=== PATIENT | female | born 1945 | race Caucasian/White ===

== ENCOUNTER 2016-07-23 16:26 | Observation (INO) | payer OTHER ==
--- NOTE | 2016-07-23 16:48 | ED EKG INTERP ---
EKG Interpretation - EKG Time of EKG reading by physician:: 16:33 EKG Read and Signed by:: Kevin Winston EKG Interpretation (*Must complete 3 of following elements*): Abnormal Rate: 70 (minimal voltage criteria for LVH, may be normal variant ) Rhythm: NSR Attestation - Scribe Verification/Attestation Scribe:: Yanira Vallecillo Acting as Scribe for:: Kevin Winston Scribe documention review:: This chart was documented by a scribe and accurately reflects the service the provider performed and the decisions made by the provider.
--- NOTE | 2016-07-23 19:36 | PROVIDER DOCUMENTATION ---
HPI-Neurological Disorder - General Chief Complaint: Headache Stated Complaint: TIA Time Seen by Provider: 07/23/16 18:57 Source: patient Allergies/Adverse Reactions: Patient Allergies Allergy/AdvReac Type Severity Reaction Status Date / Time erythromycin estolate * AdvReac Mild DIARRHEA Verified 06/13/16 16:16 [From Ilosone] Home Medications: Home Medication List Medication Instructions Recorded Confirmed Last Taken Type Donepezil [Aricept] 10 mg PO DAILY 06/13/16 06/13/16 Unknown History Fluoxetine [Prozac] 20 mg PO DAILY 06/13/16 06/13/16 Unknown History ATORVAstatin [Lipitor] 40 mg PO QHS #60 tablet 06/15/16 Unknown Rx LISINOpril [Prinivil] 10 mg PO DAILY #60 tablet 06/15/16 Unknown Rx Levothyroxine [Synthroid] 100 microgm PO DAILY@0700 #60 06/15/16 Unknown Rx tablet Omeprazole [Prilosec] 40 mg PO DAILY@0700 #60 capsule 06/15/16 Unknown Rx - History of Present Illness-Neuro Nature of Presenting Problem: Pt is a 71 yof who presents to ER with CC of a headache and flu sxs with onset this am. Pt has hx of TIA and reports a L temporal headache (sharp/stabbing/ throbbing). In triage, pt had a fever. Headache Location: reports: temporal (L) Severity: reports: mild Onset/Duration: reports: this morning Timing: reports: still present Context: reports: fever, other (headache) Character of Altered Mental Status: reports: N/A Any recent trauma/injury?: reports: none Character of Deficits: reports: new weakness Cognitive Baseline: alert, oriented x3 Gait Baseline: walks without assistance Associated Symptoms: reports: headache, fatigue. denies: short of breath, decreased ability to walk or stand, fainting, dizziness, loss of consciousness, muscle spasms, nausea, numbness in legs/feet, paresthesia, slurred speech, tingling in legs/feet, trouble walking, vomiting, vision changes, weakness Review of Systems - Adult - REVIEW OF SYSTEMS - ADULT Constitutional: reports: fatique. denies: chills, fever, night sweats, weight gain, weight loss Eyes: reports: no symptoms reported Ears, Nose, Mouth & Throat: reports: no symptoms reported Cardiovascular: reports: no symptoms reported Respiratory: reports: no symptoms reported Gastrointestinal: reports: no symptoms reported Genitourinary: reports: no symptoms reported Musculoskeletal: reports: muscle aches. denies: bone pain, back pain, frequent leg cramps, joint pain, joint swelling, muscle weakness, neck pain Integumentary: reports: no symptoms reported Neurological: reports: headache/migraines. denies: ataxia, dizziness/vertigo, loss of balance, numbness, paresthesia, seizure, slurred speech, syncope, tremors Psychiatric: reports: no symptoms reported Endocrine: reports: no symptoms reported Hematologic/Lymphatic: reports: no symptoms reported Allergic/Immunologic: reports: no symptoms reported All Other Systems: Reviewed and Negative Past History - Adult - PAST MEDICAL HISTORY-ADULT Review of Records: reports: Nursing Assessment Review, Medications Reviewed Cardiovascular: reports: HTN, hyperlipidemia Gastrointestinal: reports: cancer (colon) Musculoskeletal: reports: chronic pain, neck/back injury (20 years ago) Endocrine/Immune: reports: thyroid disorder (hypo) - PRIOR SURGERIES/PROCEDURES Surgical/Procedure History: reports: BTL, tonsillectomy, bowel surgery, other ( breast lumpectomy, thyroidectomy) - IMMUNIZATION STATUS Childhood Immunizations: See Nurse Assessment Flu Vaccine: See Nurse Assessment Physical Exam- Neurological - Physical Exam-Neuro Initial Vital Signs Reviewed: Yes General Appearance: appears well, alert, mild distress, lethargic. negative: no apparent distress Eye Exam: bilateral eye: normal inspection, PERRL, EOMI Head Injury: no evidence of injury Neck: non-tender, full range of motion, supple. negative: C-spine tenderness, limited range of motion Respiratory: chest non-tender, lungs clear, normal breath sounds. negative: respiratory distress, decreased breath sounds, accessory muscle use, wheezing Cardiovascular: normal peripheral pulses, regular rate, rhythm. 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 negative: weak motor strength RUE, weak motor strength LUE, weak motor strength RLE, weak motor strength LLE Neurologic: grossly normal, no motor/sensory deficits. negative: facial droop, focal weakness, motor weakness, sensory deficit Psych/Mental Status: normal mood/affect, normal thought content, normal thought process, oriented x 3 Progress - PLAN OF CARE/RESULTS Progress/Plan/Lab Results: Vital Signs - 24 hr 07/23/16 16:30 Temperature 100.0 F H Pulse Rate 71 Respiratory 18 Rate Blood Pressure 151/79 O2 Sat by Pulse 97 Oximetry Orders Category Date Time Status Cardiac Monitoring DIRECTED Care 07/23/16 18:58 Active Saline Loc NOW Care 07/23/16 18:58 Active CHEST-2 VIEWS [RAD] Stat Exams 07/23/16 18:58 Taken HEAD W/O CONTRAST [CT] Stat Exams 07/23/16 16:35 Taken CBC WITH ELECTRONIC DIFF [HEME] Stat Lab 07/23/16 20:20 Completed CK PROFILE [SP CHEM] Stat Lab 07/23/16 20:20 Completed COMPREHENSIVE METABOLIC PANEL [CHEM] Stat Lab 07/23/16 20:20 Completed INFLUENZA SCREEN A/B Stat Lab 07/23/16 20:20 Completed MAGNESIUM [CHEM] Stat Lab 07/23/16 20:20 Completed PRO B-NATRIURETIC PEPTIDE Stat Lab 07/23/16 20:20 Completed PROTIME WITH INR [COAG] Stat Lab 07/23/16 20:20 Completed PTT [COAG] Stat Lab 07/23/16 20:20 Completed SED RATE [HEME] Stat Lab 07/23/16 20:20 Received TROPONIN T Stat Lab 07/23/16 20:20 Completed TSH Stat Lab 07/23/16 20:20 Completed UA Reflex [URINALYSIS W/POSS RFLX CULT] [URINALYSIS] Lab 07/23/16 21:16 Ordered Stat EKG [EKG] Stat Ther 07/23/16 16:32 Ordered EKG [EKG] Stat Ther 07/23/16 18:58 Ordered Laboratory Tests 07/23/16 07/23/16 07/23/16 20:20 20:20 20:20 WBC 4.53 L RBC 4.46 Hgb 13.2 Hct 40.3 MCV 90.4 MCH 29.6 MCHC 32.8 L RDW Std Deviation 12.0 Plt Count 179 MPV 11.1 H Immature Gran % (Auto) 0.0 Neut % (Auto) 60.3 Lymph % (Auto) 22.1 Calloway % (Auto) 16.3 H Eos % (Auto) 0.9 Baso % (Auto) 0.4 Immature Gran # (Auto) 0.00 Neut # (Auto) 2.73 Lymph # (Auto) 1.00 L Calloway # (Auto) 0.74 H Eos # (Auto) 0.04 Baso # (Auto) 0.02 PT INR PTT (Actin FS) Sodium 140 Potassium 3.7 Chloride 103 Carbon Dioxide 25 Anion Gap 12 BUN 16 Creatinine 0.9 Estimated GFR/1.73 m2 > 60 BUN/Creatinine Ratio 18 Glucose 91 Calculated Osmolality 280 Calcium 9.0 Magnesium 1.7 Total Bilirubin 0.32 AST 22 ALT 21 Alkaline Phosphatase 118 H Creatine Kinase 70 Troponin T Vtv-D-Tpsfphbzoyh Pept Total Protein 6.5 Albumin 4.1 Globulin 2.4 Albumin/Globulin Ratio 1.7 TSH 4.43 H 07/23/16 07/23/16 07/23/16 20:20 20:20 20:20 WBC RBC Hgb Hct MCV MCH MCHC RDW Std Deviation Plt Count MPV Immature Gran % (Auto) Neut % (Auto) Lymph % (Auto) Calloway % (Auto) Eos % (Auto) Baso % (Auto) Immature Gran # (Auto) Neut # (Auto) Lymph # (Auto) Calloway # (Auto) Eos # (Auto) Baso # (Auto) PT 10.8 INR 1.02 PTT (Actin FS) 29.5 Sodium Potassium Chloride Carbon Dioxide Anion Gap BUN Creatinine Estimated GFR/1.73 m2 BUN/Creatinine Ratio Glucose Calculated Osmolality Calcium Magnesium Total Bilirubin AST ALT Alkaline Phosphatase Creatine Kinase Troponin T < 0.010 [id number] Pept 92 Total Protein Albumin Globulin Albumin/Globulin Ratio TSH - REASSESSMENT Reassessment #1 Time Reassessed: 21:25 Status: other (Dr. Beal informed pt is positive for flu B. Pt reports that she still has a headache.) - CT/MRI 1 CT Study: Head Impression: See EMR Report CT Results: NAP - CONSULTS/PCP/HOSPITALIST Notification #1 *Consult/PCP/Hospitalist*: Dr. Colón (Hospitalist) Time Discussed: 22:00 Consult Disposition: Admit Departure - Departure Time of Disposition Order: 21:59 DIAGNOSIS: Influenza B, Generalized weakness Disposition: ADMITTED INPATIENT 09 Certified Medical Emergency: Emergent Condition: Stable Referrals: Medina Marcelino MD [Primary Care Provider] - Attestation - Scribe Verification/Attestation Scribe:: Dilip Uriostegui Acting as Scribe for:: Doc Beal Scribe documention review:: This chart was documented by a scribe and accurately reflects the service the provider performed and the decisions made by the provider.
[2016-07-23 20:29] LABS: MANUAL DIFF NEEDED? NO
[2016-07-23 20:42] LABS: BASO% 0.4 % (0.0-0.8); EOS# 0.04 X1000 (0.0-0.7); EOS% 0.9 % (0.0-10.0); HEMATOCRIT 40.3 % (37.0-47.0); HEMOGLOBIN 13.2 g/dL (12.0-16.0); LYMPH% 22.1 % (20.5-51.1); MCH 29.6 PG (27-31); MCHC 32.8 g/dL (33-37); MCV 90.4 FL (81-99); MONO# 0.74 X1000 (0.11-0.59); MONO% 16.3 % (1.7-9.3); MPV 11.1 FL (7.4-10.4); NEUT% 60.3 % (42.2-75.2); PLT 179 X1000 (130-400); RBC 4.46 XMIL (4.2-5.4)
[2016-07-23 20:49] LABS: INR 1.02; PROTIME 10.8 Seconds (9.2-11.7); PTT 29.5 Seconds (22.0-36.0)
[2016-07-23 20:57] LABS: AGAP 12; ALBUMIN 4.1 g/dL (3.5-5.0); ALKALINE PHOSPHATASE 118 U/L (32-104); BUN 16 mg/dL (8-22); CHLORIDE 103 mmol/L (98-107); CK PROFILE 70 U/L (24-173); COSMO 280; GOT 22 U/L (10-30); GPT 21 U/L (10-36); MAGNESIUM 1.7 mg/dL (1.5-2.7); POTASSIUM 3.7 mmol/L (3.5-5.1); SODIUM 140 mmol/L (136-145); TCO2 25 mmol/L (25-35); TOTAL BILIRUBIN 0.32 mg/dL (0.20-1.00); TOTAL PROTEIN 6.5 g/dL (6.3-8.3)
[2016-07-23] MEDS ORDERED: ROCEPHIN 1 GM/NS 50 ML IV ONE (21:25)
[2016-07-23] MEDS ORDERED: TAMIFLU PO ONE (21:25)
[2016-07-23] MEDS ORDERED: DECADRON IV ONE (21:25)
[2016-07-23] MEDS ORDERED: NORFLEX IV ONE (21:25)
[2016-07-23 21:30] LABS: URINE CULTURE NEEDED? NO; URINE MICRO REVIEW NEEDED? NO; URINE SOURCE CLEAN CATCH
[2016-07-23 21:48] LABS: BILIRUBIN URINE NEGATIVE (NEGATIVE); BLOOD URINE SMALL (NEGATIVE); COLOR YELLOW; GLUCOSE URINE NEGATIVE (NEGATIVE); LEUKOCYTES URINE NEGATIVE (NEGATIVE); NITRITE URINE NEGATIVE (NEGATIVE); PROTEIN URINE NEGATIVE (NEGATIVE); SP GRAVITY URINE 1.016; TURBIDITY URINE CLEAR (CLEAR); UROBILINOGEN URINE NORMAL (NORMAL)
[2016-07-23 21:49] LABS: UR EPITHELIAL CELLS <10 /HPF (<10); URINE BACTERIA NEGATIVE /HPF; URINE WBC <10 /HPF (<10)
[2016-07-23] MEDS ORDERED: PHENERGAN PO ONE (23:57)
[2016-07-23] MEDS ORDERED: FIORICET PO ONE (23:57)
[2016-07-24] MEDS ORDERED: ZOFRAN IV PRN ×2 (02:01)
[2016-07-24] MEDS ORDERED: TYLENOL PO PRN (02:01)
[2016-07-24 04:52] LABS: MANUAL DIFF NEEDED? NO
[2016-07-24 04:54] LABS: BASO% 0.6 % (0.0-0.8); HEMATOCRIT 42.7 % (37.0-47.0); HEMOGLOBIN 14.2 g/dL (12.0-16.0); LYMPH% 20.1 % (20.5-51.1); MCH 29.6 PG (27-31); MCHC 33.3 g/dL (33-37); MONO# 0.14 X1000 (0.11-0.59); MPV 10.8 FL (7.4-10.4); NEUT% 75.3 % (42.2-75.2); PLT 188 X1000 (130-400)
[2016-07-24 05:14] LABS: CALCIUM 10.2 mg/dL (8.8-10.2); POTASSIUM 4.2 mmol/L (3.5-5.1)
[2016-07-24] MEDS: NS 1,000 ML IV SCH ×2 (05:18→14:28)
--- NOTE | 2016-07-24 05:36 | EKG Report ---
Test Performed on : 07/23/2016 4:33:17 PM Test Reason : SUÁREZ Blood Pressure : / mmHG Vent. Rate : 070 BPM Atrial Rate : 070 BPM P-R Int : 150 ms QRS Dur : 082 ms QT Int : 396 ms P-R-T Axes : 043 -13 043 degrees QTc Int : 427 ms Normal sinus rhythm. Minimal voltage criteria for LVH, may be normal variant Borderline ECG When compared with ECG of 13-JUN-2016 15:44, premature ventricular complexes. are no longer present Unconfirmed Result
--- NOTE | 2016-07-24 07:13 | Diag Imaging Result Document ---
PROCEDURE NAME: HEAD W/O CONTRAST - 07/23/2016 CT BRAIN WITHOUT: COMPARISON: Compared to 06/13/2016. FINDINGS: No parenchymal hemorrhage. No epidural or subdural hematoma. No subarachnoid hemorrhage. No hydrocephalus. No sinus opacification. No air fluid levels. IMPRESSION: No hemorrhage. Negative brain CT without contrast. A preliminary report was given at 7:40 p.m.
--- NOTE | 2016-07-24 07:15 | Diag Imaging Result Document ---
PROCEDURE NAME: CHEST-2 VIEWS - 07/23/2016 FRONTAL AND LATERAL CHEST, TWO VIEWS: COMPARISON: Compared to 06/13/2016. FINDINGS: The lungs are hyperexpanded. Mild increased AP diameter to the chest. Heart is borderline mildly prominent. The vessels are not distended. No effusion. No pneumonia. No free air beneath the diaphragm. IMPRESSION: The lungs are hyperexpanded and the heart is borderline mildly prominent.
[2016-07-24] MEDS: SYNTHROID PO SCH (08:35)
[2016-07-24] MEDS: PRILOSEC PO SCH (08:38)
--- NOTE | 2016-07-24 17:04 | CONSULTATION ---
DATE OF CONSULTATION: 07/24/2016 LOCATION: Emergency department bed #4, holding bed. HISTORY OF PRESENT ILLNESS: Ms. Pederson is 71 years old and she reports having intense headache for about 12 hours around the left yazdanism, shooting and throbbing pain. This was associated with photophobia, not significant nausea, some shakiness to the point she could hardly read her handwriting. She remembers that she had no trouble communicating with speech and she had no trouble understanding speech during this time frame. The headache is now completely resolved. She feels completely recovered and back to baseline. She has had similar headaches since her teens. Previous headaches were often worse than the recent headache. She took some medicine for headache control as a younger woman but does not now recall the name of that medicine. She has not taken prescription medicine for headache management in many years. She was admitted here with headache a few weeks ago and discharged soon after. She is not certain when was the last time she had headache with her typical migraine features, but she knows those have been much less frequent in recent years than when she was younger. Workup here includes noncontrast CT of the head reported unremarkable. She had temperature 100, later 99, later 98. Initial systolic blood pressures were 150s, later 130s. PHYSICAL EXAMINATION: On exam now, Ms. Pederson is awake, alert, attentive, appropriate. She recognized me and called me by name as I entered her room before I introduced myself. Her speech is not dysarthric. Language function is intact on brief bedside testing. I did not test her cognitive function. Head and neck are unremarkable. There is no meningismus. Visual parker are full, tested grossly by confrontational finger counting. Extraocular movements are full. Facial motility is symmetric. Facial sensation is intact. Sensation is intact on gross testing over the limbs. I did not test her gait. Power is normal and symmetric in the limbs. She did well on jotmef-ny-jnpu testing. She did rapid alternating movements well with the hands. Tongue is midline. IMPRESSION: Transient left-sided headache with typical migraine features. She has a past history of episodic headache, typical of migraine. She reports current episode has completely resolved and she is back to baseline. We briefly discussed adding medicine for migraine control treating abortively and prophylactically, but I do not think we need to do anything right now. Thanks for asking me to see Ms. Pederson. MTDD
[2016-07-24] MEDS: TAMIFLU PO SCH (20:24)
--- NOTE | 2016-07-24 20:53 | PROGRESS NOTE ---
DATE: 07/24/2016 SUBJECTIVE: Today Ms. Pederson referred to be doing relatively fine. I saw her on the floor. According to her she was having some generalized viral illness and also some headaches which has significantly improved. OBJECTIVE: Vital signs stable. Blood pressure is 138/74, pulse of 60, respirations 18, temperature is 97.4 degrees. Physical exam was unremarkable. DATA: I did review imaging. A CT scan of the head without contrast shows no hemorrhage, negative CT. A chest x-ray which was done yesterday shows hyperexpanded lungs. Heart is borderline mildly prominent. There is no effusion and no pneumonia. ASSESSMENT: 1. Viral syndrome. 2. Possible viral pneumonitis. 3. Headaches secondary to migraine. 4. Mild obesity with body mass index of 30.5. 5. Hypothyroidism. 6. Influenza B positive. OUR GENERAL PLAN: Patient does not seems to have any bacteria infection. I will therefore go ahead and discontinue the ceftriaxone. I have added Tamiflu 75 b.i.d. to the current medications. Patient has been evaluated by Neurology. Hopefully by tomorrow if she continues to show remarkable improvement will be able to discharge her.
[2016-07-24] MEDS ORDERED: LIPITOR PO SCH (21:00)
[2016-07-25] MEDS: SYNTHROID PO SCH (06:01)
[2016-07-25] MEDS: PRILOSEC PO SCH (06:01)
[2016-07-25 06:42] LABS: MANUAL DIFF NEEDED? NO
[2016-07-25 06:47] LABS: BASO% 0.2 % (0.0-0.8); EOS# 0.01 X1000 (0.0-0.7); EOS% 0.2 % (0.0-10.0); HEMATOCRIT 38.3 % (37.0-47.0); HEMOGLOBIN 12.5 g/dL (12.0-16.0); LYMPH# 1.61 X1000 (1.2-3.4); MCH 29.6 PG (27-31); MCHC 32.6 g/dL (33-37); MCV 90.5 FL (81-99); MONO# 0.76 X1000 (0.11-0.59); MONO% 14.6 % (1.7-9.3); MPV 11.4 FL (7.4-10.4); PLT 176 X1000 (130-400); RBC 4.23 XMIL (4.2-5.4)
[2016-07-25 06:59] LABS: CALCIUM 9.2 mg/dL (8.8-10.2); POTASSIUM 3.5 mmol/L (3.5-5.1)
[2016-07-25 07:31] VITALS: BP 146/71
[2016-07-25] MEDS: NS 1,000 ML IV SCH (07:40)
[2016-07-25] MEDS: TAMIFLU PO SCH (09:08)
--- NOTE | 2016-07-25 13:47 | PROGRESS NOTE ---
DATE: 07/25/2016 Today Ms. Pederson referred to be doing fine. Denies any more headaches or any generalized body pain. She also has no cough. OBJECTIVE: Vital signs: Blood pressure is 146/71, pulse is 50, respirations 18, temperature is 98.3 degrees. General Exam: Ms. Pederson is a 71-year-old female. She was in bed. She did not seem to be in any distress. HEENT: Mucosa is pink and moist. Anicteric. Acyanotic. Neck: Supple. Chest: Good air entry bilaterally. No crepitations. No rhonchi. Cardiovascular: Slightly bradycardic but nontender. No murmurs, no rubs, no gallops. Abdomen: Soft. Extremities: No pedal edema. REO ASSET MANAGER: Patient is alert and oriented x4. She seems to have a little bit of cognitive decline. LABORATORY DATA: Have been reviewed. CURRENT MEDICATIONS: Have also been reviewed. ASSESSMENT: 1. Viral syndrome secondary to influenza. 2. Possible influenza pneumonitis. 3. Headaches secondary to migraines. Improved. 4. Mild obesity. 5. Hypothyroidism with mildly elevated TSH. We are going to increase the dosage of the levothyroxine. 6. Bradycardia. I think this is secondary to the beta blockers so I will that. 7. Cognitive decline secondary to Alzheimer's disease. The patient is on Aricept. GENERAL PLAN: Patient seems to be doing stable. Will discharge her. She will continue with Tamiflu to complete 5 days. We have gone up on her levothyroxine to 112 mcg per day. The patient has been advised on weight loss. The patient will follow up with her PCP, Dr. Marcelino and her neurologist Dr. Burns on outpatient basis. We started her back on her diuretics and her WILMER inhibitor, and we will advise that she does BMP in 1 week to follow up on her electrolytes.
--- NOTE | 2016-07-26 01:27 | DISCHARGE SUMMARY ---
ADMISSION DATE: 07/23/2016 DISCHARGE DATE: 07/25/2016 CONSULTATIONS: Dr. Sachin Burns with Neurology. PERTINENT PROCEDURES: Head CT showed no hemorrhage. It was a negative brain CT without contrast. DISCHARGE DIAGNOSES: 1. Viral syndrome. Antibiotics were stopped. Added Tamiflu 75 mg b.i.d. 2. Possible viral pneumonitis. 3. Headache, secondary to migraine. Continue with home medications. 4. Mild obesity with a BMI of 30.5. 5. Hypothyroidism, continue Synthroid. 6. Influenza B positive, continue with Tamiflu. 7. Cognition decline likely to Alzheimer's disease. Follow up with Dr. Burns [facility]: Briefly, Ms Pederson is a 71-year-old female, reports having intense headaches in the left yarsani that were shooting and throbbing, associated with photophobia. No nausea, some shakiness. She has had similar headaches since her teens. The patient was admitted with a Neurology consult. Head CT was negative. While in the ED, patient was found to be flu B positive. She was initiated on antibiotics. After reassessment, it was felt that the patient does have a viral syndrome and possible viral pneumonitis. So, she was taken off her ceftriaxone, and placed on Tamiflu 75 mg p.o. b.i.d. Patient was evaluated by Neurology, and Dr. Burns felt it was a transient left-sided headache with typical migraine features, given the past history of episodic headaches and typical of migraine. Her current episode has completely resolved, and she is back to her baseline. He did discuss with her adding medications back for her migraine to control treating abortively and prophylactically, but she did not think that they needed to do anything right now. Ms Pederson is going to be discharged back home today with Tamiflu, as well as, her home medications. VITAL SIGNS AT THE TIME OF DISCHARGE: The patient has remained afebrile since admission, and today emergency room vital signs show a temperature is 98.3, heart rate 50, respirations 18, blood pressure 146/71, O2 is 97% on room air. DISCHARGE DIET: Healthy heart. DISCHARGE MEDICATIONS: 1. Avani 180 mg p.o. daily. 2. Maxzide 75/50, 1 tab p.o. daily. 3. Zocor 40 mg p.o. daily. 4. Aricept 10 mg p.o. b.i.d. 5. Prozac 10 mg p.o. daily. 6. Synthroid 112 mcg p.o. daily. 7. Tamiflu 75 mg p.o. b.i.d. for 4 more days. 8. Lipitor 40 mg p.o. at bedtime. 9. Prilosec 40 mg p.o. daily. 10. Prinivil 10 mg p.o. daily. FOLLOWUP: Patient is being discharged home. She will need to follow up with her primary care physician, Dr. Medina Marcelino, in 1 week. She is to continue her full course of Tamiflu, and can return to the ED for any worsening of symptoms. DISCHARGE TIME: Thirty minutes. As of note, the patient was made a DNR level 1, while on our service. Dictated by DARÍO Garcia for Stefano Cota MD MTDD
== END 2016-07-25 13:25 ==
LOC: ED 16:26 → EDIPHOLD 07-24 → 3N 07-24 13:52
PROVIDERS: ATTEND Internal Medicine
DX: J11.1 Influenza due to unidentified influenza virus with other respiratory manifestations (principal); R00.1 Bradycardia, unspecified; G30.9 Alzheimer's disease, unspecified; F02.80 Dementia in other diseases classified elsewhere, unspecified severity, without behavioral disturbance, psychotic disturbance, mood disturbance, and anxiety; G43.909 Migraine, unspecified, not intractable, without status migrainosus; R51 Headache; E03.9 Hypothyroidism, unspecified; I10 Essential (primary) hypertension; E78.5 Hyperlipidemia, unspecified; Z68.30 Body mass index [BMI] 30.0-30.9, adult; E66.9 Obesity, unspecified; R50.9 Fever, unspecified; R53.1 Weakness; R53.83 Other fatigue; G89.29 Other chronic pain; M54.2 Cervicalgia; M54.9 Dorsalgia, unspecified; H53.142 Visual discomfort, left eye; Z79.899 Other long term (current) drug therapy; Z86.73 Personal history of transient ischemic attack (TIA), and cerebral infarction without residual deficits; Z85.038 Personal history of other malignant neoplasm of large intestine
CPT/HCPCS: 70450; 71020; 80048; 80053; 81001; 82550; 83735; 83880; 84443; 84484; 85025; 85610; 85651; 85730; 87804; 93005; 96365; 96366; 96375; J0696; J2360; J7030